=== PATIENT | male | born 1950 | race Caucasian/White ===

== ENCOUNTER 2024-01-06 17:26 | Observation (INO) | payer MEDICARE, SELFPAY ==
[2024-01-06] VITALS (21 sets, daily range): BP systolic 88–144; BP diastolic 53–76; PULSE 73–122; RESP 10–17; TEMP 38.7–38.8; O2SAT 89–99
--- NOTE | 2024-01-06 17:56 | DI.RAD.S_ITS ---
PROCEDURE: XR CHEST 1V INDICATIONS: suspected sepsis TECHNIQUE: One view of the chest was acquired. COMPARISON: None. FINDINGS: Surgical changes and devices: Spinal cord stimulator leads in place. Lungs and pleura: Lungs are clear. No pleural effusions or pneumothorax. Mediastinum: Mediastinal contours appear normal. Heart size is normal. Bones and chest wall: No suspicious bony lesions. Overlying soft tissues appear unremarkable. IMPRESSION: No acute cardiopulmonary abnormality is seen. Dictated by: Richie Kessler M.D. on 01/06/2024 at 17:33 Approved by: Richie Kessler M.D. on 01/06/2024 at 17:33
--- NOTE | 2024-01-06 18:34 | ED.EXTPRO ---
HPI - Extremity Problem General Chief complaint: Extremity Problem,Nontraumatic Stated complaint: swollen rt arm, unable to lift arm Time Seen by Provider: 01/06/24 18:14 Source: patient Mode of arrival: Ambulatory History of Present Illness HPI Narrative: 73-year-old male with right forearm pain yesterday, redness and swelling through the day today, fever. He denies any sting or puncture or cut or abrasion, no pain at elbow, has had olecranon bursitis of the elbow on the left-hand side but not prior right side symptoms. First evaluation for this. He has not taken any oral antibiotics. He denies any cough shortness of breath or chest pain. He denies abdominal discomfort, nausea or vomiting, loose stools diarrhea, black or red stools. He denies painful urination or frequency of urination, no flank pain. He denies back pain, headache, neck pain, photophobia. He takes Eliquis chronic anticoagulation, history of atrial fibrillation. No known allergies to any antibiotics Related Data Home Medications Medication Instructions Recorded Confirmed apixaban 5 mg tablet (Eliquis) 5 mg PO BID 01/06/24 01/06/24 clopidogrel 75 mg tablet 75 mg PO DAILY 01/06/24 01/06/24 colchicine 0.6 mg tablet 0.6 mg PO DAILY 01/06/24 01/06/24 furosemide 40 mg tablet 40 mg PO DAILY 01/06/24 01/06/24 hydrochlorothiazide 25 mg tablet 25 mg PO DAILY 01/06/24 01/06/24 isosorbide mononitrate 30 mg 15 mg PO DAILY 01/06/24 01/06/24 tablet,extended release 24 hr potassium chloride 20 mEq 20 meq PO BID 01/06/24 01/06/24 tablet,extended release(part/cryst) pregabalin 150 mg capsule 150 mg PO BID 01/06/24 01/06/24 simvastatin 20 mg tablet 20 mg PO ONCE PM 01/06/24 01/06/24 telmisartan 80 mg tablet 80 mg PO DAILY 01/06/24 01/06/24 buprenorphine 2 mg-naloxone 0.5 mg 1 mg sublingual 3XD 01/07/24 01/07/24 sublingual film Allergies Allergy/AdvReac Type Severity Reaction Status Date / Time metformin AdvReac Nausea Verified 01/06/24 17:42 Review of Systems Review of Systems Narrative: per HPI Patient History Medical History CAD (coronary artery disease) Gout Social History household members: spouse Smoking Status: Never smoker alcohol intake: never Smoking Status: Never smoker alcohol intake frequency: other Substance Use Type: does not use Exam Narrative Exam Narrative: GENERAL: Well-developed patient, in mild distress. HEAD: Atraumatic. Normocephalic. EYES: Pupils equal round and reactive. Extraocular motions intact. No scleral icterus. No injection or drainage. ENT: Nose without bleeding, purulent drainage. Throat without erythema, tonsillar hypertrophy or exudate. Airway patent. NECK: Trachea midline. Non tender CARDIOVASCULAR: Regular rate and rhythm without murmurs, gallops, or rubs. RESPIRATORY: Clear to auscultation. Breath sounds equal bilaterally. No wheezes, rales, or rhonchi. GASTROINTESTINAL: Abdomen soft, non-tender, nondistended. EXTREMITIES: Redness with edema dorsal non circumferential right forearm, can flex and extend wrist but there is some discomfort, some dorsal hand edema extending to the MCPs, no volar tenderness or swelling. He has dry skin like changes, consistent with peeling recent sunburn like changes. No plaques or ulcers, no pitting edema. Normal range of motion at right elbow, no redness extending proximal, no olecranon area fluctuance or discomfort, can fully flex and extend at elbow. No redness to right upper arm or shoulder. No edema or joint tenderness. BACK: Nontender without deformity or crepitance. No flank tenderness. NEURO: AOx3. SKIN: No rash or erythema of visible areas Initial Vital Signs Initial Vital Signs: Vital Signs Temperature 101.7 F H 01/06/24 17:40 Pulse Rate 122 H 01/06/24 17:40 Respiratory Rate 17 01/06/24 17:40 Blood Pressure 123/75 01/06/24 17:40 Pulse Oximetry 97 01/06/24 17:40 Oxygen Delivery Method Room Air 01/06/24 17:40 Course Orders Ordered: ED Orders 01/07/24 08:21 Urinalysis and Microscopic Stat Acetaminophen (Acetaminophen 325 Mg Tablet) 650 mg PO Q6H RHETT Last Admin: 01/07/24 13:27 Dose: 650 mg Documented By: Admin: 01/07/24 07:08 Dose: Not Given Documented By: Admin: 01/07/24 01:45 Dose: Not Given Documented By: AB Apixaban (Apixaban 5 Mg Tablet) 5 mg PO BID COUNT INCLUDES THE [facility] Last Admin: 01/07/24 09:05 Dose: 5 mg Documented By: RB Atorvastatin Calcium (Atorvastatin 20 Mg Tablet) 10 mg PO BEDTIME COUNT INCLUDES THE [facility] Last Admin: 01/07/24 01:45 Dose: Not Given Documented By: AB Calcium Carbonate (Calcium Carbonate 500 Mg Tab) 1,000 mg PO Q4HR PRN PRN Reason: Dyspepsia Clopidogrel Bisulfate (Clopidogrel 75 Mg Tablet) 75 mg PO DAILY COUNT INCLUDES THE [facility] Last Admin: 01/07/24 09:05 Dose: 75 mg Documented By: RB Colchicine (Colchicine 0.6 Mg Tablet) 0.6 mg PO DAILY COUNT INCLUDES THE [facility] Last Admin: 01/07/24 09:46 Dose: 0.6 mg Documented By: RB Furosemide (Furosemide 40 Mg Tablet) 40 mg PO DAILY COUNT INCLUDES THE [facility] Last Admin: 01/07/24 09:05 Dose: 40 mg Documented By: RB Hydrochlorothiazide (Hydrochlorothiazide 25 Mg Tablet) 25 mg PO DAILY COUNT INCLUDES THE [facility] Last Admin: 01/07/24 09:44 Dose: 25 mg Documented By: RB Hydromorphone HCl (Hydromorphone 0.5 Mg Inj) 0.5 mg IV Q2H PRN PRN Reason: Pain, Severe (7-10) Vancomycin HCl/Dextrose (Vancomycin) 2,000 mg in 400 mls @ 200 mls/hr IV NOW COUNT INCLUDES THE [facility] Last Infusion: 01/07/24 08:32 Dose: Infused Documented By: Admin: 01/07/24 06:30 Dose: 200 mls/hr Documented By: HNG Isosorbide Mononitrate (Isosorbide Mononitrate Er 30 Mg Tablet) 15 mg PO DAILY COUNT INCLUDES THE [facility] Last Admin: 01/07/24 09:45 Dose: 15 mg Documented By: RB Losartan Potassium (Losartan 50 Mg Tablet) 100 mg PO DAILY COUNT INCLUDES THE [facility] Last Admin: 01/07/24 09:44 Dose: 100 mg Documented By: RB Naloxone HCl (Naloxone 0.4 Mg/Ml Vial) 0.2 mg IV Q2MIN PRN PRN Reason: Opiate Reversal Buprenorphine- Naloxone 2-0.5 Mg Film 1 mg SL 0900,1300,1800 COUNT INCLUDES THE [facility] Ondansetron HCl (Ondansetron 4 Mg/2 Ml Inj) 4 mg IV NOW PRN PRN Reason: Nausea And Vomiting Ondansetron HCl (Ondansetron 4 Mg Odt) 4 mg SL NOW PRN PRN Reason: Nausea And Vomiting Ondansetron HCl (Ondansetron 4 Mg/2 Ml Inj) 4 mg IV Q8HR PRN PRN Reason: Nausea And Vomiting Ondansetron HCl (Ondansetron 4 Mg Odt) 4 mg PO Q8HR PRN PRN Reason: Nausea And Vomiting Oxycodone HCl (Oxycodone Ir 5 Mg Tablet) 5 mg PO Q3H PRN PRN Reason: Pain, Moderate (4-6) Potassium Chloride (Potassium Chloride 20 Meq Tab) 20 meq PO BID COUNT INCLUDES THE [facility] Last Admin: 01/07/24 09:44 Dose: 20 meq Documented By: RB Pregabalin (Pregabalin 75 Mg Capsule) 150 mg PO BID COUNT INCLUDES THE [facility] Last Admin: 01/07/24 09:45 Dose: 150 mg Documented By: RB Sennosides (Sennosides 8.6 Mg Tablet) 17.2 mg PO BEDTIME COUNT INCLUDES THE [facility] Vancomycin HCl (Vancomycin Per Pharmacy) 1 request MISC NOW PRN PRN Reason: Fever >101 Vancomycin HCl (Vancomycin Trough) 1 request MISC 0700 COUNT INCLUDES THE [facility] Stop: 01/08/24 07:01 Discontinued Medications Acetaminophen (Acetaminophen 325 Mg Tablet) 650 mg PO NOW ONE Stop: 01/06/24 18:52 Last Admin: 01/06/24 19:16 Dose: 650 mg Documented By: RB Diltiazem HCl (Diltiazem 25 Mg/5 Ml Sdv) 20 mg IV NOW ONE Stop: 01/07/24 10:53 Last Admin: 01/07/24 11:05 Dose: 20 mg Documented By: RB Sodium Chloride (Normal Saline 0.9%) 1,000 mls @ 1,000 mls/hr IV BOLUS ONE Stop: 01/06/24 18:55 Last Infusion: 01/06/24 21:10 Dose: Infused Documented By: Admin: 01/06/24 19:03 Dose: 1,000 mls/hr Documented By: RB Sodium Chloride (Normal Saline 0.9%) 1,000 mls @ 1,000 mls/hr IV BOLUS ONE Stop: 01/06/24 19:32 Last Infusion: 01/06/24 22:10 Dose: Infused Documented By: Admin: 01/06/24 21:10 Dose: 1,000 mls/hr Documented By: AB Ceftriaxone Sodium 1,000 mg/ (Sodium Chloride) 100 mls @ 200 mls/hr IV NOW ONE Stop: 01/06/24 18:34 Last Infusion: 01/06/24 20:15 Dose: Infused Documented By: Admin: 01/06/24 19:46 Dose: 200 mls/hr Documented By: AB Methylprednisolone (Methylprednisolone 125 Mg/2 Ml Vial) 125 mg IV NOW ONE Stop: 01/07/24 10:54 Last Admin: 01/07/24 11:05 Dose: 125 mg Documented By: RB Buprenorphine- Naloxone 2-0.5 Mg Film 1 mg SL TID RHETT Vital Signs Vital signs: Vital Signs - 8 hr 01/06/24 17:40 01/06/24 18:44 01/06/24 19:00 Temperature 101.7 F H Pulse Rate 122 H 98 H Pulse Rate [Right Radial] 118 H Respiratory Rate 17 14 Blood Pressure 123/75 Pulse Oximetry 97 94 Oxygen Delivery Method Room Air Oxygen Flow Rate 01/06/24 19:13 01/06/24 19:13 01/06/24 19:15 Temperature Pulse Rate 116 H 115 H Pulse Rate [Right Radial] Respiratory Rate 10 L 12 Blood Pressure 113/72 Pulse Oximetry 96 94 Oxygen Delivery Method Oxygen Flow Rate 01/06/24 19:15 01/06/24 19:16 01/06/24 19:30 Temperature 102 F H Pulse Rate 113 H Pulse Rate [Right Radial] Respiratory Rate 15 Blood Pressure 124/64 Pulse Oximetry 90 L Oxygen Delivery Method Oxygen Flow Rate 01/06/24 19:30 01/06/24 19:45 01/06/24 19:45 Temperature Pulse Rate 115 H Pulse Rate [Right Radial] Respiratory Rate 13 Blood Pressure 126/69 126/58 L Pulse Oximetry 89 L Oxygen Delivery Method Oxygen Flow Rate 01/06/24 19:59 01/06/24 20:00 01/06/24 20:00 Temperature Pulse Rate 110 H Pulse Rate [Right Radial] Respiratory Rate Blood Pressure 105/58 L Pulse Oximetry 96 97 Oxygen Delivery Method Nasal Cannula Oxygen Flow Rate 2 01/06/24 20:15 01/06/24 20:15 01/06/24 20:30 Temperature Pulse Rate 110 H 73 Pulse Rate [Right Radial] Respiratory Rate 12 12 Blood Pressure 92/53 L Pulse Oximetry 98 98 Oxygen Delivery Method Oxygen Flow Rate 01/06/24 20:30 01/06/24 20:45 01/06/24 20:45 Temperature Pulse Rate 106 H Pulse Rate [Right Radial] Respiratory Rate 11 L Blood Pressure 91/54 L 88/54 L Pulse Oximetry 98 Oxygen Delivery Method Oxygen Flow Rate 01/06/24 21:00 01/06/24 21:00 01/06/24 21:15 Temperature Pulse Rate 110 H 107 H Pulse Rate [Right Radial] Respiratory Rate 10 L 12 Blood Pressure 144/72 H Pulse Oximetry 99 99 Oxygen Delivery Method Oxygen Flow Rate 01/06/24 21:15 01/06/24 21:30 01/06/24 21:30 Temperature Pulse Rate 105 H Pulse Rate [Right Radial] Respiratory Rate Blood Pressure 131/66 132/66 Pulse Oximetry 99 Oxygen Delivery Method Oxygen Flow Rate 01/06/24 21:45 01/06/24 21:45 01/06/24 22:00 Temperature Pulse Rate 116 H 113 H Pulse Rate [Right Radial] Respiratory Rate Blood Pressure 143/76 H Pulse Oximetry 98 98 Oxygen Delivery Method Oxygen Flow Rate 01/06/24 22:00 01/06/24 22:15 01/06/24 22:15 Temperature Pulse Rate 109 H Pulse Rate [Right Radial] Respiratory Rate Blood Pressure 129/66 124/61 Pulse Oximetry 97 Oxygen Delivery Method Oxygen Flow Rate 01/06/24 22:30 01/06/24 22:30 01/06/24 22:45 Temperature Pulse Rate 79 Pulse Rate [Right Radial] Respiratory Rate Blood Pressure 107/61 112/60 Pulse Oximetry 97 Oxygen Delivery Method Oxygen Flow Rate 01/06/24 22:45 Temperature Pulse Rate 110 H Pulse Rate [Right Radial] Respiratory Rate Blood Pressure Pulse Oximetry 97 Oxygen Delivery Method Oxygen Flow Rate MDM - Extremity (Nontraumatic) Lab Data 01/07/24 04:30 01/07/24 04:30 Labs: Lab Results 01/06/24 Range/Units 18:50 WBC 9.5 (4.5-11.0) X10^3/uL RBC 3.60 L (4.5-5.9) X10^6/uL Hgb 10.3 L (13.5-17.5) g/dL Hct 31.3 L (41-53) % MCV 86.8 (80-100) fL MCH 28.4 (26-34) PG MCHC 32.8 (30-36) % RDW 15.5 H (11.6-14.8) % Plt Count 227 (150-400) X10^3/uL Neut % (Auto) 70.7 (50-75) % Lymph % (Auto) 18.4 L (25-40) % [place] % (Auto) 10.2 (3-14) % Eos % (Auto) 0.1 L (2-4) % Baso % (Auto) 0.6 (0-2) % Neut # (Auto) 6700 (0981-0893) /uL Lymph # (Auto) 1700 (2441-3662) /uL [place] # (Auto) 1000 H (0-900) /uL Eos # (Auto) 0 (0-450) /uL Baso # (Auto) 100 (0-100) /uL ESR 65 H (0-15) MM/HR PT 14.6 H (9.4-12.5) SECONDS INR 1.3 (0.9-1.3) APTT 32 (25.1-36.5) SECONDS Sodium 141 (137-145) mmol/L Potassium 4.3 (3.4-5.1) mmol/L Chloride 102 (98-107) mmol/L Carbon Dioxide 32 (22-32) mmol/L BUN 56 H (9-20) mg/dL Creatinine 2.60 H (0.66-1.25) mg/dL Estimated GFR 25 L (>60) mL/min BUN/Creatinine Ratio 21.5 (6-22) Glucose 135 H (80-110) mg/dL Hemoglobin A1c 6.2 H (4.0-6.0) % Lactate 1.0 (0.7-2.1) mmol/L Calcium 8.6 (8.4-10.2) mg/dL Total Bilirubin 0.6 (0.2-1.3) mg/dL AST 18 (17-59) IU/L ALT 13 (<50) IU/L Alkaline Phosphatase 82 (38-126) U/L C-Reactive Protein 19.4 H (<1.0) mg/dL Total Protein 6.7 (6.3-8.2) g/dL Albumin 3.5 (3.5-5.0) g/dL Globulin 3.2 (1.7-4.1) g/dL Albumin/Globulin Ratio 1.1 (1.0-2.8) Lipase 228 (23-300) U/L Procalcitonin 0.495 (<0.5) ng/mL Imaging Data Chest x-ray: Radiologist's Impression: [address] [address] XRay Report Signed Patient: Kelvin Sow MR#: [id number] : 1950 Acct:[id number] Age/Sex: 73 / M Date of Service: 01/06/24 Loc: ED Accession Number: [id number] Procedure: XR chest 1V Ordering Provider: Rosita Pereyra D.O. PROCEDURE: XR CHEST 1V INDICATIONS: suspected sepsis TECHNIQUE: One view of the chest was acquired. COMPARISON: None. FINDINGS: Surgical changes and devices: Spinal cord stimulator leads in place. Lungs and pleura: Lungs are clear. No pleural effusions or pneumothorax. Mediastinum: Mediastinal contours appear normal. Heart size is normal. Bones and chest wall: No suspicious bony lesions. Overlying soft tissues appear unremarkable. IMPRESSION: No acute cardiopulmonary abnormality is seen. Dictated by: Richie Kessler M.D. on 01/06/2024 at 17:33 Approved by: Richie Kessler M.D. on 01/06/2024 at 17:33 Extremity x-ray #1: Radiologist's Impression: [address] [address] XRay Report Signed Patient: Kelvin Sow MR#: [id number] : 1950 Acct:[id number] Age/Sex: 73 / M Date of Service: 01/06/24 Loc: ED Accession Number: [id number] Procedure: XR forearm RT 2V Ordering Provider: Sudhir Howell MD PROCEDURE: XR FOREARM RT 2V INDICATIONS: right FA red/swelling, ?injury TECHNIQUE: 3 views of the forearm were acquired. COMPARISON: None. FINDINGS: Bones: No fractures or dislocations. No suspicious bony lesions. Soft tissues: No suspicious soft tissue calcifications or masses. IMPRESSION: No acute bony abnormality. Dictated by: Richie Kessler M.D. on 01/06/2024 at 18:33 Approved by: Richie Kessler M.D. on 01/06/2024 at 18:34 US venous doppler left upper extremity: Radiologist's Impression: [address] [address] Ultrasound Report Signed Patient: Kelvin Sow MR#: [id number] : 1950 Acct:[id number] Age/Sex: 73 / M Date of Service: 01/06/24 Loc: ED Accession Number: [id number] Procedure: US periph venous up extrem rt Ordering Provider: Sudhir Howell MD PROCEDURE: US PERIPH VENOUS UP EXTREM RT INDICATIONS: red/swelling R forearm TECHNIQUE: Real-time imaging, as well as color and pulse Doppler interrogation, was performed of the upper extremity deep veins from the inferior neck to the antecubital fossa. COMPARISON: None. FINDINGS: The internal jugular vein, visualized portions of the subclavian vein, axillary, and brachial veins are free of intraluminal thrombus. Where physically possible, the veins are normally compressible. Color and pulse Doppler demonstrate normal intraluminal flow, with expected phasicity and pulsatility. Additional scanning of the cephalic and basilic veins of the superficial system demonstrates normal compressibility, without thrombus. IMPRESSION: No findings of upper extremity deep venous thrombosis can be seen. Dictated by: Florencio Alvarado M.D. on 01/06/2024 at 22:28 Approved by: Florencio Alvarado M.D. on 01/06/2024 at 22:28 [facility] Narrative Medical decision making narrative: 73-year-old male with fever and tachycardia, sirs screen positive, right arm swelling and redness, possible cellulitis, consider DVT, though no obvious risk factors. White blood cell count not elevated, lactate normal. Blood cultures sent. X-ray right forearm without injuries, no osteomyelitis changes. Elevated CRP and ESR noted. Chest x-ray negative. Urinalysis pending. Ultrasound right upper extremity venous Doppler study pending. IV ceftriaxone after blood cultures for empiric cellulitis treatment. IV fluid bolus. Left upper extremity venous Doppler, no DVT per sono tech report, await radiology's over-read. Ultrasound formal radiology report, no DVT found. We will contact hospitalist regarding admission. Case discussed with hospitalist Dr. Ramirez, accepts patient for admission to observation Critical Care Time Critical Care Time Critical Care Time: Yes Total Critical Care Time: 35 Attestation: The high probability of a clinically significant, sudden or life threatening deterioration of the [musculoskeletal, peripheral vascular, cardiopulmonary] system(s) required my full and direct attention, intervention and personal management. The aggregate critical care time was [35] minutes. This time is in addition to time spent performing reported procedures but includes the following: [x] Data Review and interpretation [x] Patient assessment and monitoring of vital signs [x] Documentation [x] Medication orders and management Discharge Plan Departure Patient Disposition: Admitted as Observation Clinical Impression: Cellulitis of arm, right, Sinus tachycardia, Sepsis, Fever Admit Date/Time: 01/06/24 23:14 Admit Provider: Juan Ramon Ramirez
--- NOTE | 2024-01-06 18:36 | PC.NURSE ---
Several nurses have attempted IV placement. 3rd nurse attempting IV with ultrasound.
--- NOTE | 2024-01-06 18:40 | DI.RAD.S_ITS ---
PROCEDURE: XR FOREARM RT 2V INDICATIONS: right FA red/swelling, ?injury TECHNIQUE: 3 views of the forearm were acquired. COMPARISON: None. FINDINGS: Bones: No fractures or dislocations. No suspicious bony lesions. Soft tissues: No suspicious soft tissue calcifications or masses. IMPRESSION: No acute bony abnormality. Dictated by: Richie Kessler M.D. on 01/06/2024 at 18:33 Approved by: Richie Kessler M.D. on 01/06/2024 at 18:34
--- NOTE | 2024-01-06 18:41 | DI.US.S_ITS ---
PROCEDURE: US PERIPH VENOUS UP EXTREM RT INDICATIONS: red/swelling R forearm TECHNIQUE: Real-time imaging, as well as color and pulse Doppler interrogation, was performed of the upper extremity deep veins from the inferior neck to the antecubital fossa. COMPARISON: None. FINDINGS: The internal jugular vein, visualized portions of the subclavian vein, axillary, and brachial veins are free of intraluminal thrombus. Where physically possible, the veins are normally compressible. Color and pulse Doppler demonstrate normal intraluminal flow, with expected phasicity and pulsatility. Additional scanning of the cephalic and basilic veins of the superficial system demonstrates normal compressibility, without thrombus. IMPRESSION: No findings of upper extremity deep venous thrombosis can be seen. Dictated by: Florencio Alvarado M.D. on 01/06/2024 at 22:28 Approved by: Florencio Alvarado M.D. on 01/06/2024 at 22:28
[2024-01-06] MEDS: SODIUM CHLORIDE 0.9% 1,000 ML 1000 ML IV ×2 (19:03→21:10)
[2024-01-06 19:15] LABS: Add Manual Diff / Slide Review NO; Basophils Absolute Auto 100 /uL (0-100); Basophils Percent Auto 0.6 % (0-2); Eosinophils Absolute Auto 0 /uL (0-450); Eosinophils Percent Auto 0.1 % (2-4); Hematocrit 31.3 % (41-53); Hemoglobin 10.3 g/dL (13.5-17.5); Lymphocytes Absolute Auto 1700 /uL (1100-4500); Lymphocytes Percent Auto 18.4 % (25-40); Mean Corpuscular HGB Conc 32.8 % (30-36); Mean Corpuscular Hemoglobin 28.4 PG (26-34); Mean Corpuscular Volume 86.8 fL (80-100); Monocytes Absolute Auto 1000 /uL (0-900); Monocytes Percent Auto 10.2 % (3-14); Neutrophils Absolute Auto 6700 /uL (1500-7000); Neutrophils Percent Auto 70.7 % (50-75); Platelet Count 227 X10^3/uL (150-400); Red Cell Distribution Width 15.5 % (11.6-14.8); White Blood Cell Count 9.5 X10^3/uL (4.5-11.0)
[2024-01-06] MEDS: ACETAMINOPHEN 325 MG TABLET 650 MG PO (19:16)
[2024-01-06 19:19] LABS: INR 1.3 (0.9-1.3); Prothrombin Time 14.6 SECONDS (9.4-12.5)
[2024-01-06 19:21] LABS: PTT Partial Thromboplastin Tim 32 SECONDS (25.1-36.5)
[2024-01-06 19:26] LABS: Alanine Aminotransferase 13 IU/L (<50); Albumin 3.5 g/dL (3.5-5.0); Albumin Globulin Ratio 1.1 (1.0-2.8); Alkaline Phosphatase 82 U/L (38-126); Aspartate Aminotransferase 18 IU/L (17-59); BUN Creatinine Ratio 21.5 (6-22); Bilirubin Total 0.6 mg/dL (0.2-1.3); Blood Urea Nitrogen 56 mg/dL (9-20); Calcium 8.6 mg/dL (8.4-10.2); Carbon Dioxide 32 mmol/L (22-32); Chloride 102 mmol/L (98-107); Estimated Glomerular Filt Rate 25 mL/min (>60); Globulin 3.2 g/dL (1.7-4.1); Glucose 135 mg/dL (80-110); HEMOLYSIS < 15 (0-50); Lipase 228 U/L (23-300); Potassium 4.3 mmol/L (3.4-5.1); Sodium 141 mmol/L (137-145); Total Protein 6.7 g/dL (6.3-8.2)
[2024-01-06 19:34] LABS: Erythrocyte Sedimentation Rate 65 MM/HR (0-15)
[2024-01-06 19:41] LABS: C-Reactive Protein Quant 19.4 mg/dL (<1.0)
[2024-01-06 19:43] LABS: Procalcitonin 0.495 ng/mL (<0.5)
[2024-01-06] MEDS: cefTRIAXone 1,000 MG in SODIUM CHLORIDE 0.9% 100 ML 200 MG IV (19:46)
--- NOTE | 2024-01-06 23:59 | PC.NURSE ---
Transferred pt into a hospital bed and moved from room 7 to room 6
[2024-01-07] VITALS (55 sets, daily range): BP systolic 95–154; BP diastolic 51–96; PULSE 52–129; RESP 9–20; TEMP 36.4–38.8; O2SAT 88–100; BMI 29.5
--- NOTE | 2024-01-07 | DI.CT.S_ITS ---
PROCEDURE: CT UE RT WO CON INDICATIONS: swelling and pain in arm, r/out compartment syndrome TECHNIQUE: Noncontrast 3 mm axial sections acquired of the right upper extremity , with coronal and sagittal reformats. COMPARISON: [facility], , PERIPH VENOUS UP EXTREM RT, 01/06/2024, 21:41. FINDINGS: Image quality: Excellent. Bones: No visualized fracture or dislocation. No suspicious osseous lesions. Soft tissues: Noncontrast images demonstrate mild appearance of subcutaneous fat stranding most prominently at the level of the elbow. No focal fluid collection. No intramuscular fluid or organized fluid collection. IMPRESSION: Mild appearance cellulitis at the level of the elbow. No subcutaneous or intramuscular free fluid or organized collection. Dictated by: Delilah Tavares M.D. on 01/07/2024 at 10:07 Approved by: Delilah Tavares M.D. on 01/07/2024 at 10:15
[2024-01-07 00:04] LABS: Hemoglobin A1C% w Est Avg Glu 6.2 % (4.0-6.0)
--- NOTE | 2024-01-07 01:03 | P.HP_ITS ---
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 Prior to flying he had no symptoms or problems and takes his meds faithfully. During my interview, the pt was very somnolent and all of the history comes from the at the bedside. There has been no fevers, chills, injury to the arm or shoulder. He has been unable to use the rt arm and moves the arm with his left hand. 2 months ago he was dx with bursitis of the left arm. [facility] Medical History (Updated 01/07/24 @ 01:08 by Juan Ramon Ramirez MD) CAD (coronary artery disease) Gout Social History Smoking Status: Never smoker Meds Home Medications and Allergies Home Medications Medication Instructions Recorded Confirmed Type apixaban 5 mg tablet (Eliquis) 5 mg PO BID 01/06/24 01/06/24 History buprenorphine 2 mg-naloxone 0.5 mg film sublingual 01/06/24 History sublingual film clopidogrel 75 mg tablet 75 mg PO DAILY 01/06/24 01/06/24 History colchicine 0.6 mg tablet 0.6 mg PO DAILY 01/06/24 01/06/24 History furosemide 40 mg tablet 40 mg PO DAILY 01/06/24 01/06/24 History hydrochlorothiazide 25 mg tablet 25 mg PO DAILY 01/06/24 01/06/24 History isosorbide mononitrate 30 mg 15 mg PO DAILY 01/06/24 01/06/24 History tablet,extended release 24 hr potassium chloride 20 mEq 20 meq PO BID 01/06/24 01/06/24 History tablet,extended release(part/cryst) pregabalin 150 mg capsule 150 mg PO BID 01/06/24 01/06/24 History simvastatin 20 mg tablet 20 mg PO ONCE PM 01/06/24 01/06/24 History telmisartan 80 mg tablet 80 mg PO DAILY 01/06/24 01/06/24 History Allergies Allergy/AdvReac Type Severity Reaction Status Date / Time metformin AdvReac Nausea Verified 01/06/24 17:42 Exam Vital Signs (past 8 hours): - 01/06/24 17:40 01/06/24 18:44 01/06/24 19:00 Temperature 101.7 F H Pulse Rate 122 H 98 H Pulse Rate [Right Radial] 118 H Respiratory Rate 17 14 Blood Pressure 123/75 Pulse Oximetry 97 94 Oxygen Delivery Method Room Air Oxygen Flow Rate 01/06/24 19:13 01/06/24 19:13 01/06/24 19:15 Temperature Pulse Rate 116 H 115 H Pulse Rate [Right Radial] Respiratory Rate 10 L 12 Blood Pressure 113/72 Pulse Oximetry 96 94 Oxygen Delivery Method Oxygen Flow Rate 01/06/24 19:15 01/06/24 19:16 01/06/24 19:30 Temperature 102 F H Pulse Rate 113 H Pulse Rate [Right Radial] Respiratory Rate 15 Blood Pressure 124/64 Pulse Oximetry 90 L Oxygen Delivery Method Oxygen Flow Rate 01/06/24 19:30 01/06/24 19:45 01/06/24 19:45 Temperature Pulse Rate 115 H Pulse Rate [Right Radial] Respiratory Rate 13 Blood Pressure 126/69 126/58 L Pulse Oximetry 89 L Oxygen Delivery Method Oxygen Flow Rate 01/06/24 19:59 01/06/24 20:00 01/06/24 20:00 Temperature Pulse Rate 110 H Pulse Rate [Right Radial] Respiratory Rate Blood Pressure 105/58 L Pulse Oximetry 96 97 Oxygen Delivery Method Nasal Cannula Oxygen Flow Rate 2 01/06/24 20:15 01/06/24 20:15 01/06/24 20:30 Temperature Pulse Rate 110 H 73 Pulse Rate [Right Radial] Respiratory Rate 12 12 Blood Pressure 92/53 L Pulse Oximetry 98 98 Oxygen Delivery Method Oxygen Flow Rate 01/06/24 20:30 01/06/24 20:45 01/06/24 20:45 Temperature Pulse Rate 106 H Pulse Rate [Right Radial] Respiratory Rate 11 L Blood Pressure 91/54 L 88/54 L Pulse Oximetry 98 Oxygen Delivery Method Oxygen Flow Rate 01/06/24 21:00 01/06/24 21:00 01/06/24 21:15 Temperature Pulse Rate 110 H 107 H Pulse Rate [Right Radial] Respiratory Rate 10 L 12 Blood Pressure 144/72 H Pulse Oximetry 99 99 Oxygen Delivery Method Oxygen Flow Rate 01/06/24 21:15 01/06/24 21:30 01/06/24 21:30 Temperature Pulse Rate 105 H Pulse Rate [Right Radial] Respiratory Rate Blood Pressure 131/66 132/66 Pulse Oximetry 99 Oxygen Delivery Method Oxygen Flow Rate 01/06/24 21:45 01/06/24 21:45 01/06/24 22:00 Temperature Pulse Rate 116 H 113 H Pulse Rate [Right Radial] Respiratory Rate Blood Pressure 143/76 H Pulse Oximetry 98 98 Oxygen Delivery Method Oxygen Flow Rate 01/06/24 22:00 01/06/24 22:15 01/06/24 22:15 Temperature Pulse Rate 109 H Pulse Rate [Right Radial] Respiratory Rate Blood Pressure 129/66 124/61 Pulse Oximetry 97 Oxygen Delivery Method Oxygen Flow Rate 01/06/24 22:30 01/06/24 22:30 01/06/24 22:45 Temperature Pulse Rate 79 Pulse Rate [Right Radial] Respiratory Rate Blood Pressure 107/61 112/60 Pulse Oximetry 97 Oxygen Delivery Method Oxygen Flow Rate 01/06/24 22:45 Temperature Pulse Rate 110 H Pulse Rate [Right Radial] Respiratory Rate Blood Pressure Pulse Oximetry 97 Oxygen Delivery Method Oxygen Flow Rate Oxygen Delivery Method Nasal Cannula Oxygen Flow Rate 2 Const General: ill appearing and lethargic Resp Auscultation: clear to auscultation bilaterally Cardio Rate: tachycardic Rhythm: regular rhythm Extrem Other: entire right arm is swollen and erythematous Objective Labs 01/06/24 18:50 01/06/24 18:50 Labs: Laboratory Results - last 24 hr 01/06/24 18:50 WBC 9.5 RBC 3.60 L Hgb 10.3 L Hct 31.3 L MCV 86.8 MCH 28.4 MCHC 32.8 RDW 15.5 H Plt Count 227 Neut % (Auto) 70.7 Lymph % (Auto) 18.4 L [place] % (Auto) 10.2 Eos % (Auto) 0.1 L Baso % (Auto) 0.6 Neut # (Auto) 6700 Lymph # (Auto) 1700 [place] # (Auto) 1000 H Eos # (Auto) 0 Baso # (Auto) 100 ESR 65 H PT 14.6 H INR 1.3 APTT 32 Sodium 141 Potassium 4.3 Chloride 102 Carbon Dioxide 32 BUN 56 H Creatinine 2.60 H Estimated GFR 25 L BUN/Creatinine Ratio 21.5 Glucose 135 H Hemoglobin A1c 6.2 H Lactate 1.0 Calcium 8.6 Total Bilirubin 0.6 AST 18 ALT 13 Alkaline Phosphatase 82 C-Reactive Protein 19.4 H Total Protein 6.7 Albumin 3.5 Globulin 3.2 Albumin/Globulin Ratio 1.1 Lipase 228 Procalcitonin 0.495 Assessment & Plan Assessment and plan (1) Cellulitis of arm, right: Status: Acute (2) CVA, old, ataxia: Status: Acute (3) CKD (chronic kidney disease), stage IV: Status: Acute Plan I discussed the symptoms and labs with the Er provider and agree with the decision for admission. I have interviewed the pt through our telemedicine monitor and nursing performed the exam. I have personally reivewed the labs and US of the arm which is negative for DVT. I am concerned about the severity of the swelling. WIll start the pt on vancomycin and repeat labs in the morning. Consider CT of the arm to r/out other serious pathology such as compartmental syndrome. Hx of atrial fib on eliquis and hx of CVA with chronic weakness is clouding the picture. checking uric acid, Cr is close to basleine per wifes report, currently 2.6. Time-Based Coding :: [TOTAL MINUTES] spent with patient and on the chart (including review of chart, obtaining history, exam, reviewing outside data, placing orders, documenting exam and treatment plan, and counseling patient) on [DATE].
[2024-01-07 04:38] LABS: Add Manual Diff / Slide Review NO; Basophils Absolute Auto 0 /uL (0-100); Basophils Percent Auto 0.4 % (0-2); Eosinophils Absolute Auto 100 /uL (0-450); Eosinophils Percent Auto 1.1 % (2-4); Hematocrit 28.9 % (41-53); Hemoglobin 9.5 g/dL (13.5-17.5); Lymphocytes Absolute Auto 1900 /uL (1100-4500); Lymphocytes Percent Auto 24.4 % (25-40); Mean Corpuscular HGB Conc 32.9 % (30-36); Mean Corpuscular Hemoglobin 28.6 PG (26-34); Mean Corpuscular Volume 87.1 fL (80-100); Monocytes Absolute Auto 900 /uL (0-900); Neutrophils Absolute Auto 4900 /uL (1500-7000); Neutrophils Percent Auto 63.1 % (50-75); Platelet Count 198 X10^3/uL (150-400); Red Blood Cell Count 3.31 X10^6/uL (4.5-5.9); Red Cell Distribution Width 15.2 % (11.6-14.8); White Blood Cell Count 7.8 X10^3/uL (4.5-11.0)
[2024-01-07 04:47] LABS: BUN Creatinine Ratio 25.8 (6-22); Blood Urea Nitrogen 47 mg/dL (9-20); Carbon Dioxide 30 mmol/L (22-32); Chloride 106 mmol/L (98-107); Estimated Glomerular Filt Rate 38 mL/min (>60); Glucose 128 mg/dL (80-110); HEMOLYSIS < 15 (0-50); Potassium 3.9 mmol/L (3.4-5.1); Sodium 141 mmol/L (137-145)
[2024-01-07] MEDS: VANCOMYCIN 2,000 MG/400 ML PIGGYBACK 200 MG IV (06:30)
--- NOTE | 2024-01-07 07:07 | P.PN_ITS ---
Subjective Subjective Date Patient Seen: 01/07/24 Time Patient Seen: 10:20 Interval history: Chief complaint: swollen rt arm, unable to lift arm Narrative: The pt is a 73 yo with a hx of atrial fibrillation on Eliquis and hx of CVA 9 years ago with right sided chronic weakness who started noticing severe swelling and redness with pain upon any movement about 2 days ago shortly after flying to our city to visit friends from [place], [place]. Prior to flying he had no symptoms or problems and takes his meds faithfully. During my interview, the pt was very somnolent and all of the history comes from the at the bedside. There has been no fevers, chills, injury to the arm or shoulder. He has been unable to use the rt arm and moves the arm with his left hand. 2 months ago he was dx with bursitis of the left arm. Interval history: The patient notes a significant history of gout, though never in the upper extremities. He also has chronic atrial fibrillation and was noted to be in rapid ventricular response in the emergency department administered 20 mg of IV diltiazem. Exam Vital Signs (past 8 hours): - 01/07/24 01:00 01/07/24 01:00 01/07/24 01:15 Temperature Pulse Rate 110 H 88 Respiratory Rate 11 L 11 L Blood Pressure 126/71 Pulse Oximetry 98 96 Oxygen Delivery Method Nasal Cannula Nasal Cannula Oxygen Flow Rate 2 2 01/07/24 01:15 01/07/24 01:30 01/07/24 01:30 Temperature Pulse Rate 80 Respiratory Rate 11 L Blood Pressure 109/52 L 116/56 L Pulse Oximetry 97 Oxygen Delivery Method Oxygen Flow Rate 01/07/24 01:45 01/07/24 01:45 01/07/24 02:00 Temperature Pulse Rate 59 L Respiratory Rate 11 L Blood Pressure 114/56 L 104/53 L Pulse Oximetry 97 Oxygen Delivery Method Oxygen Flow Rate 01/07/24 02:00 01/07/24 02:15 01/07/24 02:15 Temperature Pulse Rate 76 71 Respiratory Rate 11 L 11 L Blood Pressure 112/67 Pulse Oximetry 95 98 Oxygen Delivery Method Oxygen Flow Rate 01/07/24 02:30 01/07/24 02:30 01/07/24 02:45 Temperature Pulse Rate 89 87 Respiratory Rate 10 L 10 L Blood Pressure 111/71 Pulse Oximetry 97 97 Oxygen Delivery Method Oxygen Flow Rate 01/07/24 02:45 01/07/24 03:00 01/07/24 03:00 Temperature Pulse Rate 63 Respiratory Rate 11 L Blood Pressure 104/56 L 96/51 L Pulse Oximetry 97 Oxygen Delivery Method Oxygen Flow Rate 01/07/24 03:15 01/07/24 03:15 01/07/24 03:30 Temperature Pulse Rate 117 H 93 H Respiratory Rate 11 L 12 Blood Pressure 106/62 Pulse Oximetry 88 L 97 Oxygen Delivery Method Oxygen Flow Rate 01/07/24 03:30 01/07/24 03:45 01/07/24 03:45 Temperature Pulse Rate 81 Respiratory Rate 11 L Blood Pressure 127/58 L 123/58 L Pulse Oximetry 97 Oxygen Delivery Method Oxygen Flow Rate 01/07/24 04:00 01/07/24 04:01 01/07/24 04:01 Temperature Pulse Rate 86 62 Respiratory Rate 10 L 10 L Blood Pressure 131/58 L Pulse Oximetry 97 97 Oxygen Delivery Method Oxygen Flow Rate 01/07/24 04:15 01/07/24 04:15 01/07/24 04:30 Temperature Pulse Rate 59 L 69 Respiratory Rate 10 L 12 Blood Pressure 128/57 L Pulse Oximetry 97 98 Oxygen Delivery Method Oxygen Flow Rate 01/07/24 04:30 01/07/24 04:45 01/07/24 04:45 Temperature Pulse Rate 60 Respiratory Rate 10 L Blood Pressure 134/65 111/65 Pulse Oximetry 97 Oxygen Delivery Method Oxygen Flow Rate 01/07/24 05:00 01/07/24 05:00 01/07/24 05:15 Temperature Pulse Rate 69 57 L Respiratory Rate 10 L 11 L Blood Pressure 112/63 Pulse Oximetry 98 98 Oxygen Delivery Method Oxygen Flow Rate 01/07/24 05:15 01/07/24 05:30 01/07/24 05:30 Temperature Pulse Rate 63 Respiratory Rate 10 L Blood Pressure 113/59 L 131/60 Pulse Oximetry 99 Oxygen Delivery Method Oxygen Flow Rate 01/07/24 05:36 01/07/24 05:45 01/07/24 05:45 Temperature 102 F H Pulse Rate 123 H 61 Respiratory Rate 15 10 L Blood Pressure 131/70 126/62 Pulse Oximetry 99 100 Oxygen Delivery Method Oxygen Flow Rate 01/07/24 06:00 01/07/24 06:00 01/07/24 06:15 Temperature Pulse Rate 113 H 119 H Respiratory Rate 11 L 10 L Blood Pressure 126/59 L Pulse Oximetry 100 100 Oxygen Delivery Method Oxygen Flow Rate 01/07/24 06:15 01/07/24 06:30 01/07/24 06:31 Temperature Pulse Rate 75 74 Respiratory Rate 11 L 12 Blood Pressure 146/83 H Pulse Oximetry 100 99 Oxygen Delivery Method Nasal Cannula Oxygen Flow Rate 2 01/07/24 06:31 01/07/24 06:45 01/07/24 06:45 Temperature Pulse Rate 123 H Respiratory Rate 15 Blood Pressure 136/63 131/70 Pulse Oximetry Oxygen Delivery Method Oxygen Flow Rate Oxygen Delivery Method Nasal Cannula Oxygen Flow Rate 2 Narrative Exam Narrative: GENERAL: This is a well-nourished, well-developed patient, in no apparent distress. HEAD: Atraumatic. Normocephalic. No temporal or scalp tenderness. EYES: Pupils equal round and reactive. Extraocular motions intact. No scleral icterus. No injection or drainage. ENT: Mucous membranes pink and moist. NECK: Trachea midline. No JVD, bruits or lymphadenopathy. Supple, nontender, no meningeal signs. CARDIOVASCULAR: Regular rate and rhythm without murmurs, gallops, or rubs. RESPIRATORY: Clear to auscultation. GASTROINTESTINAL: Abdomen soft, non-tender, nondistended. EXTREMITIES: No clubbing, cyanosis, or edema. MUSCULOSKELETAL: Right arm with mild diffuse swelling, with warmth and exquisite pain with active ROM of the right wrist and elbow, right shoulder nontender with SROM. NEUROLOGIC: Alert, oriented, speech fluent, mild right-sided weakness from prior stroke noted. DERMATOLOGIC: No rashes or skin lesions. Objective Imaging Chest x-ray 01/06/2024: Radiologist's impression: No acute cardiopulmonary abnormality is seen. Right forearm x-ray 01/06/2024: Radiologist's impression: No acute bony abnormality. Right upper extremity Doppler ultrasound 01/06/2024: Radiologist's impression: No findings of upper extremity deep venous thrombosis can be seen. Right arm noncontrast CT scan 01/07/2024: Radiologist's impression: FINDINGS: Image quality: Excellent. Bones: No visualized fracture or dislocation. No suspicious osseous lesions. Soft tissues: Noncontrast images demonstrate mild appearance of subcutaneous fat stranding most prominently at the level of the elbow. No focal fluid collection. No intramuscular fluid or organized fluid collection. IMPRESSION: Mild appearance cellulitis at the level of the elbow. No subcutaneous or intramuscular free fluid or organized collection. Labs 01/07/24 04:30 01/07/24 04:30 Labs: Laboratory Results - last 24 hr 01/06/24 01/07/24 18:50 04:30 WBC 9.5 7.8 RBC 3.60 L 3.31 L Hgb 10.3 L 9.5 L Hct 31.3 L 28.9 L MCV 86.8 87.1 MCH 28.4 28.6 MCHC 32.8 32.9 RDW 15.5 H 15.2 H Plt Count 227 198 Neut % (Auto) 70.7 63.1 Lymph % (Auto) 18.4 L 24.4 L [place] % (Auto) 10.2 11.0 Eos % (Auto) 0.1 L 1.1 L Baso % (Auto) 0.6 0.4 Neut # (Auto) 6700 4900 Lymph # (Auto) 1700 1900 [place] # (Auto) 1000 H 900 Eos # (Auto) 0 100 Baso # (Auto) 100 0 ESR 65 H PT 14.6 H INR 1.3 APTT 32 Sodium 141 141 Potassium 4.3 3.9 Chloride 102 106 Carbon Dioxide 32 30 BUN 56 H 47 H Creatinine 2.60 H 1.82 H Estimated GFR 25 L 38 L BUN/Creatinine Ratio 21.5 25.8 H Glucose 135 H 128 H Hemoglobin A1c 6.2 H Lactate 1.0 Calcium 8.6 8.0 L Total Bilirubin 0.6 AST 18 ALT 13 Alkaline Phosphatase 82 C-Reactive Protein 19.4 H Total Protein 6.7 Albumin 3.5 Globulin 3.2 Albumin/Globulin Ratio 1.1 Lipase 228 Procalcitonin 0.495 [facility] Medical History CAD (coronary artery disease) Gout Social History Smoking Status: Never smoker Assessment & Plan Assessment & Plan narrative: 1. Right upper extremity pain and swelling, gout suspected. Possible cellulitis was suspected on admission and he was placed on IV vancomycin as well as colchicine 0.6 mg daily. Add IV Solu-Medrol 125 mg now then oral prednisone 40 mg daily. Monitor clinically. If significantly improved tomorrow cellulitis is very unlikely and he can be discharged home on oral prednisone taper. 2. Atrial fibrillation with rapid ventricular response. Continue routine medications. Monitor on telemetry. 3. History of stroke with right-sided weakness due to atrial fibrillation. Present on admission and stable. 4. Coronary artery disease. Present on admission and stable. Continue routine medication. 5. Hypertension. Continue routine medication. 6. Hyperlipidemia. Continue routine medication. Seven. Code status: Full code. Reviewed with the patient and his on admission Time-Based Coding :: [TOTAL MINUTES] spent with patient and on the chart (including review of chart, obtaining history, exam, reviewing outside data, placing orders, documenting exam and treatment plan, and counseling patient) on [DATE]. Quality VTE Deep Vein Thrombosis/Pulmonary Embolism Present on Admission: No MIPS - Admit I confirm the patient?s Advance Care Plan is present, Code status is documented, Surrogate decision maker is in patient?s record [If Yes, STOP here]: Yes MIPS - Meds 'Current medications' to include all prescriptions, [id number] products, herbals, cannabis/cannabidiol products, and vitamin/mineral/dietary (nutritional) supplements. I have utilized all available resources to obtain, update, or review the patient?s current medications. [If Yes, STOP here]: Yes PROFEE Charge codes Subsequent inpatient/observation care: 30897
[2024-01-07 08:00] LABS: Uric Acid 9.6 mg/dL (3.5-8.5)
[2024-01-07 08:33] LABS: Appearance Urine UA CLEAR; Bilirubin Urine UA NEGATIVE (NEGATIVE); Color Urine UA YELLOW; Glucose Urine UA NEGATIVE (Negative); Ketones Urine UA NEGATIVE (NEGATIVE); Leukocyte Esterase Urine UA NEGATIVE (NEGATIVE); Nitrite Urine UA NEGATIVE (Negative); Occult Blood Urine UA NEGATIVE (Negative); Protein Urine UA TRACE (Negative); Urobilinogen Urine UA 0.2 E.U./dL (0.2); pH Urine UA 5.5 (4.5-8.0)
[2024-01-07 08:40] LABS: Amorphous Sediment Urine 1+; Bacteria Urine None Seen; Culture Indicated Urine Cult Not Indicated; RBC Urine None Seen (0-5/HPF); Squamous Epithelial Cell Urine None Seen (0-5/HPF); UR Morphine/Opiate cutoff 300 Negative (Negative); Ur Creatinine Normal (Normal); Ur Specific Gravity Normal (Normal); Urine Amphetamines Negative (Negative); Urine Barbiturates Negative (Negative); Urine Benzodiazepines Negative (Negative); Urine Cocaine Negative (Negative); Urine MDMA Negative (Negative); Urine Methadone Negative (Negative); Urine Methamphetamines Negative (Negative); Urine Oxycodone Negative (Negative); Urine Phencyclidine Negative (Negative); Urine Tetrahydrocannabinol Negative (Negative); Urine Tricyclic Antidepressant Negative (Negative); Urine Volume 10mL (spun); Urine pH Normal (Normal); WBC Urine None Seen (0-5/HPF)
[2024-01-07] MEDS: APIXABAN 5 MG TABLET PO ×2 (09:05→21:34)
[2024-01-07] MEDS: FUROSEMIDE 40 MG TABLET PO (09:05)
[2024-01-07] MEDS: CLOPIDOGREL 75 MG TABLET PO (09:05)
[2024-01-07] MEDS: hydroCHLOROthiazide 25 MG TABLET PO (09:44)
[2024-01-07] MEDS: LOSARTAN 50 MG TABLET 100 MG PO (09:44)
[2024-01-07] MEDS: POTASSIUM CHLORIDE 20 MEQ TAB PO ×2 (09:44→21:34)
[2024-01-07] MEDS: PREGABALIN 75 MG CAPSULE 150 MG PO ×2 (09:45→21:34)
[2024-01-07] MEDS: ISOSORBIDE MONONITRATE ER 30 MG TABLET 15 MG PO (09:45)
[2024-01-07] MEDS: COLCHICINE 0.6 MG TABLET PO (09:46)
[2024-01-07] MEDS: dilTIAZem 25 MG/5 ML SDV 20 MG IV (11:05)
[2024-01-07] MEDS: methylPREDNISolone 125 MG/2 ML VIAL IV (11:05)
[2024-01-07] MEDS: ACETAMINOPHEN 325 MG TABLET 650 MG PO ×2 (13:27→19:40)
[2024-01-07] MEDS: BUPRENORPHINE NALOXONE 1 EACH SL (19:40)
[2024-01-07] MEDS: SENNOSIDES 8.6 MG TABLET 17.2 MG PO (21:34)
[2024-01-07] MEDS: ATORVASTATIN 20 MG TABLET 10 MG PO (21:34)
[2024-01-08] VITALS: BP 97/56; PULSE 59; RESP 17; TEMP 36.1; O2SAT 95
[2024-01-08 04:00] VITALS: BP 95/49; PULSE 51; RESP 10; TEMP 35.9; O2SAT 94
[2024-01-08 07:24] LABS: Vancomycin Random 11.3 ug/mL (10-40)
[2024-01-08] MEDS: VANCOMYCIN TROUGH 1 REQUEST MISC (07:30)
[2024-01-08] MEDS: COLCHICINE 0.6 MG TABLET PO (08:17)
[2024-01-08] MEDS: FUROSEMIDE 40 MG TABLET PO (08:17)
[2024-01-08] MEDS: APIXABAN 5 MG TABLET PO (08:17)
[2024-01-08] MEDS: CLOPIDOGREL 75 MG TABLET PO (08:17)
[2024-01-08] MEDS: POTASSIUM CHLORIDE 20 MEQ TAB PO (08:18)
[2024-01-08] MEDS: PREGABALIN 75 MG CAPSULE 150 MG PO (08:18)
[2024-01-08 08:32] VITALS: BP 101/53; PULSE 59; RESP 20; TEMP 36.3; O2SAT 97
[2024-01-08] MEDS: BUPRENORPHINE NALOXONE 1 EACH SL (09:25)
--- NOTE | 2024-01-08 11:31 | PM.DS.1 ---
History of Present Illness History of Present Illness Date Patient Seen: 01/08/24 Time Patient Seen: 11:37 Chief complaint: swollen rt arm, unable to lift arm Narrative: The pt is a 73 yo with a hx of atrial fibrillation on Eliquis and hx of CVA 9 years ago with right sided chronic weakness who started noticing severe swelling and redness with pain upon any movement about 2 days ago shortly after flying to our city to visit friends from [place], [place]. Prior to flying he had no symptoms or problems and takes his meds faithfully. During my interview, the pt was very somnolent and all of the history comes from the at the bedside. There has been no fevers, chills, injury to the arm or shoulder. He has been unable to use the rt arm and moves the arm with his left hand. 2 months ago he was dx with bursitis of the left arm. Discharge Providers Provider Date of admission: 01/06/24 23:14 Discharge Date: 01/08/24 Discharge provider: Abhishek Jones DO Summary Hospital Course Discharge Diagnosis: 1. Right upper extremity pain and swelling, R elbow cellulitis or possible gout flare 2. Atrial fibrillation with rapid ventricular response. 3. History of stroke with right-sided weakness due to atrial fibrillation. 4. Coronary artery disease. 5. Hypertension. 6. Hyperlipidemia. 7. JADEN on CKD stage IV Hospital Course: This is a 73 year old male with PMH of afib, prior CVA, CAD, HTN, HLD, gout who presented with RUE swelling and redness. CT scan showed mild cellulitis of his R elbow. It is not entirely clear at the time of discharge if this represented an acute gout flare or cellulitis. Uric acid was 9.6. He improved with vancomycin along with steroid administration. There was no possible joint effusion to tap based on CT imaging. Also noted on admission were afib with RVR that improved with resumption of his home medications. His baseline Cr is not known but improved on repeat from 2.6 to 1.82 representing an JADEN on admission. His flight home was delayed due to hospital admission, forms for travel insurance were also filled out prior to discharge. Time Spent with Patient Time spent: Greater than 30 minutes Exam Vital Signs (past 8 hours): - 01/08/24 04:00 01/08/24 08:32 Temperature 96.7 F L 97.3 F L Pulse Rate 51 L 59 L Respiratory Rate 10 L 20 Blood Pressure 95/49 L 101/53 L Pulse Oximetry 94 97 Oxygen Flow Rate 0 0 Fraction of Inspired Oxygen 21 SaO2/FiO2 Ratio 447 Oxygen Delivery Method Room Air Oxygen Flow Rate 0 Narrative Exam Narrative: GENERAL: This is a well-nourished, well-developed patient, in no apparent distress. HEAD: Atraumatic. Normocephalic. No temporal or scalp tenderness. EYES: Pupils equal round and reactive. Extraocular motions intact. No scleral icterus. No injection or drainage. ENT: Mucous membranes pink and moist. NECK: Trachea midline. No JVD, bruits or lymphadenopathy. Supple, nontender, no meningeal signs. CARDIOVASCULAR: Regular rate and rhythm without murmurs, gallops, or rubs. RESPIRATORY: Clear to auscultation. GASTROINTESTINAL: Abdomen soft, non-tender, nondistended. EXTREMITIES: No clubbing, cyanosis, or edema. MUSCULOSKELETAL: Right arm with mild diffuse swelling, with no erythema today, mild tenderness on R elbow now much improved. NEUROLOGIC: Alert, oriented, speech fluent, mild right-sided weakness from prior stroke noted. DERMATOLOGIC: No rashes or skin lesions. Objective Labs 01/07/24 04:30 01/07/24 04:30 Labs: Laboratory Results - last 24 hr 01/08/24 06:46 Random Vancomycin 11.3 PFSH Medical History CAD (coronary artery disease) Gout Social History household members: spouse Smoking Status: Never smoker alcohol intake: never Discharge Plan Discharge Plan Patient Disposition: Home Provider Discharge Comment: You were admitted to the hospital with either gout flare or cellulitis of your R elbow. Improved with steroids and antibiotics. Also started on low dose allopurinol based on your kidney function. Follow up with PCP as previously scheduled later this month Discharge orders & Medications Prescriptions: New doxycycline hyclate 100 mg tablet 100 mg PO BID 5 Days Qty: 10 0RF prednisone 20 mg tablet See Rx Instructions .ROUTE .COMPLEX Qty: 10 0RF Rx Instructions: Take 40 mg daily for 3 days, then 20 mg daily for 3 days, then 10 mg daily for 2 days then stop allopurinol 100 mg tablet 50 mg PO .QOD 90 Days Qty: 23 0RF Continued furosemide 40 mg tablet 40 mg PO DAILY isosorbide mononitrate 30 mg tablet extended release 24 hr 15 mg PO DAILY clopidogrel 75 mg tablet 75 mg PO DAILY potassium chloride 20 mEq tablet,ER particles/crystals 20 meq PO BID simvastatin 20 mg tablet 20 mg PO ONCE PM telmisartan 80 mg tablet 80 mg PO DAILY hydrochlorothiazide 25 mg tablet 25 mg PO DAILY colchicine 0.6 mg tablet 0.6 mg PO DAILY pregabalin 150 mg capsule 150 mg PO BID Eliquis 5 mg tablet 5 mg PO BID buprenorphine-naloxone 2-0.5 mg film 1 mg sublingual 3XD Diet/Activity/Treatments Diet: Diet as Tolerated and Regular Activity: As tolerated, no restrictions Visit Report/Discharge Packet Instructions: Gout, DI for Gout Stand Alone Forms: Patient Portal/API, Stroke Signs & Symptoms Discharge Data Attending Provider: Juan Ramon Ramirez Admit Date/Time: 01/06/24 23:14 Quality VTE Deep Vein Thrombosis/Pulmonary Embolism Present on Admission: No
--- NOTE | 2024-01-08 13:54 | PC.NURSE ---
Patient is A&OX4, VSS, afebrile on RA. BP slightly low and a.m. medications held. He denies dizziness, and is asymptomatic of hypotension. Patient states pain to L arm is significantly improved and is 1-2 /10. He reports at baseline he has numbness to his RUE. He is evaluated by MD and cleared for discharge today with prescriptions for steroids, allopurinal and antibiotics. He and his acknowledge understanding of activity, medications and follow up appointment as previously scheduled with PCP. completes paperwork for international travel medical clearance and CM faxes for patient. Copy returned to patient. He is escorted via w/ch to private vehicle with and friend for discharge home today at approximately 1310.
--- NOTE | 2024-01-08 14:17 | CM.DANOTE ---
Brief DCP Assessment Note Pt is a 73yo M here with cellulitis vs gout in right arm PCP None listed Payer Untied [employer] MCR and self pay CORPORATE ASSOCIATE reviewed EMR. Per chart, pt visiting from out of town ([place]) with spouse. Per hospitalist in morning rounds, pt getting both abx and steroids. Plan is to dc later today. Per pt request, hospitalist completed travel medical report forms. CORPORATE ASSOCIATE faxed them to appropriate number (senior environmental technician [employer] f [phone], case #[id number]). CORPORATE ASSOCIATE made copy, attempted to give them to pt but he was showering. CORPORATE ASSOCIATE gave copy to nurse to put in dc paperwork. CORPORATE ASSOCIATE placed originals in scanning folder to scan into pt's chart in case needed for future reference. Pt left prior to being seen by this CORPORATE ASSOCIATE P: pt discharged home with spouse, no identified barriers to safe dc with spouse. CM team will continue to follow as needed DEWAYNE Mclain Discharge Planning/Care Management Advanced directive, confirm from FAMILY Start: 01/07/24 13:22 Freq: Q24H Status: Discharge Protocol: Document 01/07/24 15:01 ELIZABETH (Rec: 01/07/24 15:06 ELIZABETH [id number]) Co-signed By Carmen Bang RN Advance Directive, confirm on record Time 15:01 Person contacted pt Copy received No CM Discharge Assessment Start: 01/08/24 14:16 Freq: Status: Active Protocol: Document 01/08/24 14:16 (Rec: 01/08/24 14:17 [id number]) Discharge Planning Assessment Assigned Tire Shop Mechanic DEWAYNE Mclain Advance Directives? No Advance Directives on File No History Provided By Patient,Family Member, Significant Other Prior Living Arrangements Apartment/Condo Household Members spouse Independent with ADL's Yes Is patient alert and oriented? Yes Barriers to Discharge No Discharge Plan Home Transportation Arrangement family POV Referrals Initiated None needed Whiteboard Updated in Patient Room with No name and ext. # of Tire Shop Mechanic Review Status In Process Next Review Type Continued Stay Review
== END 2024-01-08 13:10 | disposition home or self-care (01) ==
LOC: ED 23:07 → AC 23:15
PROVIDERS: Emergency Medicine; Admitting Provider Internal Medicine; Emergency Provider Internal Medicine; Visit Provider Internal Medicine
DX: M79.89 Other specified soft tissue disorders (principal); N17.9 Acute kidney failure, unspecified; N18.4 Chronic kidney disease, stage 4 (severe); I48.20 Chronic atrial fibrillation, unspecified; I69.993 Ataxia following unspecified cerebrovascular disease; Z79.01 Long term (current) use of anticoagulants; I10 Essential (primary) hypertension; E78.5 Hyperlipidemia, unspecified; I25.10 Atherosclerotic heart disease of native coronary artery without angina pectoris
CPT/HCPCS: 36415; 71045; 73090; 73200; 80048; 80053; 80202; 80305; 81001; 83036; 83605; 83690; 84145; 84550; 85025; 85610; 85651; 85730; 86140; 87040; 93971; 96361; 96365; 96366; 96367; 96375; 99285; G0378; J0696; J2919